=== PATIENT | male | born 1985 | race Caucasian/White ===

== ENCOUNTER 2017-11-28 09:10 | Emergency (ER) | payer OTHER, SELFPAY ==
[2017-11-28 09:11] VITALS: BP 121/74; PULSE 69; RESP 14; TEMP 37; O2SAT 99; BMI 23.7
--- NOTE | 2017-11-28 09:20 | CT_ITS ---
STUDY: CT BRAIN WITHOUT CONTRAST REASON FOR EXAM: Male, 32 years old. Head trauma following a fall. RADIATION DOSAGE (If Supplied By Facility): CTDIvol = ( 44.99 ) mGy, DLP = ( 796.11 ) mGycm TECHNIQUE: Transaxial CT imaging of the brain was performed without administration of intravenous contrast material. Individualized dose optimization techniques were used for this CT. COMPARISON: None. FINDINGS: Normal soft tissue structures. Normal calvarium. Normal size ventricles and extra-axial spaces for the patient's age. Normal white matter tracts of the cerebral hemispheres. Normal basal ganglia and thalami. Normal brainstem. Normal cerebellum. There is no intracranial hemorrhage. There are no findings of an acute ischemic infarction. Opacification of the ethmoid sinuses. Partial opacification of the maxillary sinuses bilaterally worse on the right side. Partial opacification of the frontal sinuses. CT/Brain/Head without Contrast IMPRESSION: Sinusitis. Electronically Signed: Jacinto Madera MD at 10:00 EDT Tel [phone], Service support ,
--- NOTE | 2017-11-28 09:20 | RAD_ITS ---
STUDY: X-RAY - THORACIC SPINE REASON FOR EXAM: Male, 32 years old. History of fall. TECHNIQUE: 3 view(s) of the thoracic spine were obtained. COMPARISON: None. FINDINGS: Normal kyphosis of the thoracic spine. There is no substantial scoliosis. Normal thoracic vertebrae and endplates. Normal disc space heights. The soft tissue structures are unremarkable. RAD/Thoracic Spine 3 Views IMPRESSION: Normal x-ray examination of the thoracic spine. Electronically Signed: Jacinto Madera MD at 10:14 EDT Tel [phone], Service support ,
[2017-11-28] MEDS: Ketorolac 30 MG/ML Syringe 60 MG IM (09:30)
--- NOTE | 2017-11-28 09:50 | RAD_ITS ---
STUDY: X-RAY - CERVICAL SPINE REASON FOR EXAM: Male, 32 years old. Injury due to a fall. TECHNIQUE: 5 view(s) of the cervical spine were obtained. COMPARISON: None FINDINGS: Normal anterior atlantoaxial articulation. Normal odontoid process. Normal cervical lordosis. Normal vertebral bodies and endplates. Normal disc space heights. Normal visualized intervertebral neuroforamina. The soft tissue structures are unremarkable. RAD/Cerv Spine 2 or 3 Views IMPRESSION: Normal x-ray examination of the visualized cervical spine. Electronically Signed: Jacinto Madera MD at 10:14 EDT Tel [phone], Service support ,
--- NOTE | 2017-11-28 10:22 | ED.DCSUM_ITS ---
- ER Visit Summary Date of Service: 11/28/17 Chief Complaint: Head injury History of Present Illness: The patient is a [address] Daigle off. He reports that he was on a 4 foot step ladder when a clamp hit him in the head. 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 Reports that he fell off a stepladder. He is unsure whether he had a loss of consciousness. Complains of a headache that 6 out of 10 severity and neck pain that is 6 out of 10 severity. He denies any other complaints. Physical Examination: Vitals: Stable. Afebrile. Neck: Mild diffuse sinus palpation over his entire cervical spine and upper thoracic spine. No point tenderness. Full ROM without difficulty. Back: Diffuse tenderness palpation over the upper thoracic spine without point tenderness. No pain over the lumbar spine. General: A&O x 3. NAD. Cardiovascular exam: Regular rate and rhythm, no murmur, rub or gallop. Respiratory exam: Chest nontender. No crepitus. Clear to auscultation bilaterally. No wheezes or stridor. Abdominal exam: Soft, nontender, nondistended, normal bowel sounds. No pain in RUQ or LUQ specifically. No peritoneal signs. Extremity: Atraumatic. No pain with range of motion. Test Results: Urine shows no intracranial hemorrhage. He does have sinusitis. X-rays of his C-spine thoracic spine are negative. Emergency Department Course and Treatment: Patient was treated with Toradol IM and is resting comfortably. Treatment Plan: She will be discharged with instructions to use Tylenol and/or ibuprofen for pain. Follow-up manuel mirza in 1 week for another exam. Disposition: To home in improved and stable condition. Impression: 1. Concussion. 2. Cervical strain. This note was generated with [employer] dictation software. It may contain incorrect words, spelling, and punctuation that were not noted in review of the chart prior to signing ED Disposition - Plan for ED Patient: Chief Complaint: Trauma Instructions: ED Concussion Referrals: GISELLA OBANDO [GROUP OF PHYSICIANS] - 1 Week
[2017-11-28 10:28] VITALS: BP 124/79; PULSE 65; RESP 18; O2SAT 99
== END 2017-11-28 10:29 | disposition home or self-care (01) ==
PROVIDERS: Emergency Provider Emergency Medicine; Family Provider Family Medicine; PCP Family Medicine
DX: S06.0X0A Concussion without loss of consciousness, initial encounter (principal); S16.1XXA Strain of muscle, fascia and tendon at neck level, initial encounter; J32.9 Chronic sinusitis, unspecified; F17.220 Nicotine dependence, chewing tobacco, uncomplicated; W18.09XA Striking against other object with subsequent fall, initial encounter; Y93.89 Activity, other specified; Y92.89 Other specified places as the place of occurrence of the external cause; Y99.8 Other external cause status
CPT/HCPCS: 70450; 72040; 72072; 96372; 99283

== ENCOUNTER 2021-07-18 21:12 | Emergency (ER) | payer BC, SELFPAY ==
[2021-07-18 21:19] VITALS: BP 112/72; PULSE 87; RESP 16; TEMP 37.1; O2SAT 94; BMI 26.1
--- NOTE | 2021-07-18 21:40 | CT_ITS ---
EXAMINATION : Head CT w/out contrast HISTORY : syncope, weakness COMPARISON : 11/28/2017. TECHNIQUE : Multiple contiguous axial images were obtained from the skull base to the vertex without intravenous contrast. A radiation dose optimization technique was used for this scan. FINDINGS : The ventricles and sulci are normal in size. There is no evidence for acute intracranial hemorrhage, mass effect, or midline shift. There is no extra-axial fluid collection. There is normal jewell-white differentiation, without CT evidence of acute ischemia or infarct. The skull base and calvarium are unremarkable. The orbits are unremarkable. Mild mucosal thickening of several ethmoid air cells. The mastoid air cells are well-aerated. The soft tissues are unremarkable. CT/Brain/Head without Contrast IMPRESSION: No acute intracranial abnormality. Ethmoid sinusitis. Electronically Signed: Giovany Ramires MD at 23:00 EDT Tel , Service support ,
--- NOTE | 2021-07-18 21:40 | CT_ITS ---
INDICATION: chest pain -- r/o dissection EXAMINATION: CTA Chest WO/W Contrast Injection TECHNIQUE: Helically acquired images were obtained of the chest following administration of IV contrast. A radiation dose optimization technique was used for this scan. 3D postprocessing images including MIPS were reviewed. IV Contrast dosage and agent: IV 100mL [id number] COMPARISON: None. FINDINGS: Lungs: Unremarkable Mediastinum: The cardiomediastinal silhouette is not enlarged. No mediastinal, hilar or axillary adenopathy. The thoracic aorta is unremarkable. No obvious filling defect seen within the visualized pulmonary arteries. Pleura: Bibasilar atelectasis. Bones/Soft tissues: No suspicious osseous or soft tissue lesions Upper abdomen: No visualized abnormalities in the upper abdomen. CT/CTA Chest W/WO Contrast IMPRESSION: No acute abnormalities in the chest. Specifically, no evidence of dissection. Electronically Signed: Giovany Ramires MD at 23:01 EDT Tel , Service support ,
--- NOTE | 2021-07-18 21:41 | EKG12_ITS ---
Test Reason : CP Blood Pressure : / mmHG Vent. Rate : 086 BPM Atrial Rate : 086 BPM P-R Int : 146 ms QRS Dur : 092 ms QT Int : 342 ms P-R-T Axes : 069 057 039 degrees QTc Int : 409 ms Normal sinus rhythm Normal ECG Confirmed by ALEXANDRIA FIGUEROA, RONEY ([id number]), commercial production editor SHERRON HICKMAN ([id number]) on 07/20/2021 9:46:56 AM Referred By: SHANIA Confirmed By:RONEY IBRAHIM MD
[2021-07-18] MEDS: 0.9% Normal Saline 1,000 ML 1000 ML IV (21:50)
[2021-07-18 21:58] LABS: Absolute Lymphocyte Count 0.85 X10^3/uL (0.83-4.51); Absolute Neutrophil Count 13.3 X10^3/uL (2.0-7.7); Basophil# 0.05 X10^3/uL; Basophil% 0.3 % (0-1); Eosinophil# 0.11 X10^3/uL; Eosinophils% 0.7 % (0-5); Hematocrit 42.8 % (40-54); Hemoglobin 15.2 g/dL (13.0-16.5); Lymphocyte # 0.85 X10^3/ul (0.83-4.51); Lymphocyte % 5.6 % (19-41); Mean Corp Hgb Conc 35.5 g/dL (32-36); Mean Corpuscular Hgb 31.7 pg (27.0-32.0); Mean Corpuscular Volume 89.2 fL (80-94); Mean Platelet Vol. 9.6 fl (6.2-12.0); Monocyte# 0.71 X10^3/uL; Monocyte% 4.7 % (0-10); NRBC Flagged by Analyzer 0 % (0-5); Neutrophil # 13.34 X10^3/uL (2.7-7.7); Neutrophil % 88.1 % (47-70); Platelet Count 219 K/mm3 (150-450); RBC Distribution Width CV 11.9 % (11.6-14.6); RBC Distribution Width SD 38.3 fl (35.1-43.9); White Blood Count 15.2 K/mm3 (4.4-11.0)
[2021-07-18 22:14] LABS: AST(SGOT) 18 U/L (15-37); Alanine Aminotransfer ALT/SGPT 29 U/L (16-61); Albumin, Serum 4.3 g/dL (3.2-5.0); Alkaline Phosphatase 53 U/L (45-117); Anion Gap 9 (5-15); BUN 17 mg/dL (7-18); BUN/Creat Ratio 12.9 RATIO (10-20); Bilirubin, Direct 0.13 mg/dL (0.00-0.30); Calcium,Total 9.5 mg/dL (8.5-10.1); Chloride 106 mmol/L (98-107); Creatinine, Serum 1.32 mg/dL (0.70-1.30); EST Glomerular Filtration Rate 65 mL/min (>60); Est Glom Filt Rate - Afr Amer 79 mL/min (>60); Estimated Creatinine Clearance 87.43 ml/min; Globulin 3.3 g/dL (2.2-4.2); Glucose 109 mg/dL (74-106); Potassium 3.5 mmol/L (3.5-5.1); Protein, Total 7.6 g/dL (6.4-8.2); Sodium Level 141 mmol/L (136-145); Troponin-I HS 17 pg/mL (3.0-78.0)
[2021-07-18 22:39] VITALS: BP 118/70; PULSE 80; RESP 19; O2SAT 99
[2021-07-18] MEDS: 0.9% Normal Saline 1,000 ML 250 ML IV (22:46)
[2021-07-18 22:48] LABS: CPK Total, Creatine Kinase 105 U/L (39-308)
--- NOTE | 2021-07-18 23:15 | EX.ED.DYSGE1 ---
HPI History of Present Illness Chief Complaint: Weakness Informant: patient and spouse/S.O. Onset/Context/Timing Onset: Today Current Severity: Moderate Maximum Severity: Moderate Narrative Narrative: Patient presents secondary to chest pain, syncope, upper extremity tingling and pain. Patient and his are in the [place]. He does admit he did not eat or drink much today. He was trying to drag a 200 pound deer out of the [place] up a hill with coyotes following him. Patient states he developed chest pain and felt like his heart was beating out of my chest. He was getting lightheaded and dizzy. He states his arms locked up and he felt like he could not move them and they were tingling. states he had a brief syncopal episode at the edge of the [place]. She got him in the truck and had another brief syncopal episode in the vehicle. She pulled into a local gas station and called EMS. On arrival to the emergency room patient states he is feeling improved but still has significant tenderness on his arms and some mild chest pain. He denies shortness of breath. He does report having a history of seizures with cluster migraines, but states he has not had any of these in years. 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 [facility] Medical History Cluster headache Seizure Medical History no medical history Home Medications NK 11/28/17 [History Last Taken Unknown] Allergy/AdvReac Type Severity Reaction Status Date / Time No Known Allergies Allergy Verified 11/28/17 09:13 Social History Smoking Status: Never smoker ROS ROS ED Constitutional Constitutional ED: Denies chills or fever(s) Eyes Eyes: Denies change in vision ENT ENT ED: Denies sore throat Cardiovascular Cardiovascular: Reports chest pain Respiratory/Chest Respiratory/Chest: Denies cough or dyspnea Gastrointestinal Gastrointestinal: Denies abdominal pain, diarrhea, nausea or vomiting Genitourinary Genitourinary ED: Denies dysuria Musculoskeletal Musculoskeletal: Reports myalgias; Denies back pain Integumentary Denies rash Neurologic Neurologic: Reports paresthesias; Denies headache(s) or weakness Allergic/Immunologic Allergic/Immunologic ED: Denies urticaria EXAM Physical Exam Const Vital Signs: 07/18/21 21:19 07/18/21 22:38 07/18/21 22:39 Temperature 98.7 F Temperature Source Oral Pulse Rate 87 80 Respiratory Rate 16 19 H Respiratory Effort Normal Non-Labored Respiratory Pattern Normal Blood Pressure 112/72 118/70 Blood Pressure Mean 85 86 Pulse Ox 94 99 Oxygen Delivery Method Room Air Room Air 07/18/21 23:22 Temperature Temperature Source Pulse Rate 77 Respiratory Rate 14 Respiratory Effort Respiratory Pattern Blood Pressure 129/68 H Blood Pressure Mean Pulse Ox 98 Oxygen Delivery Method Positive well nourished and well developed General Appearance ED: well developed Eyes PERRL and EOMs intact bilaterally Neck supple Chest Wall inspection of chest normal and palpation of chest normal Resp normal respiratory effort and clear to auscultation bilaterally Cardio regular rate and regular rhythm GI normal to inspection, nondistended, normoactive bowel sounds and non-tender Palpation: soft Extremity Extremity Narrative: Muscular tenderness with palpation over the forearms and upper arms. No significant edema noted. Strong distal pulses that are equal. Strong hand grasp bilaterally. No tenderness noted to the lower extremities. Neuro oriented x3 Sensorium / Orientation: alert Psych mental status grossly normal Skin no rashes or lesions noted MDM MDM MDM Narrative Medical decision making narrative: EKG, head CT, CTA chest obtained. Lab work ordered. Patient given a liter IV fluids. Lab Data Attestation: I reviewed the patient's lab results. Labs: Laboratory Results - last 24 hr 07/18/21 07/18/21 07/18/21 21:30 21:30 21:30 WBC 15.2 H RBC 4.80 Hgb 15.2 Hct 42.8 MCV 89.2 MCH 31.7 MCHC 35.5 RDW Std Deviation 38.3 RDW Coeff of Js 11.9 Plt Count 219 MPV 9.6 Immature Gran % (Auto) 0.600 Neut % (Auto) 88.1 H Lymph % (Auto) 5.6 L Hancock % (Auto) 4.7 Eos % (Auto) 0.7 Baso % (Auto) 0.3 Absolute Neuts (auto) 13.3 H Absolute Lymphs (auto) 0.85 Nucleated RBC % 0 Sodium 141 Potassium 3.5 Chloride 106 Carbon Dioxide 26.0 Anion Gap 9 BUN 17 Creatinine 1.32 H Estim Creat Clear Calc 87.43 Est GFR (MDRD) Af Amer 79 Est GFR (MDRD) Non-Af 65 BUN/Creatinine Ratio 12.9 Glucose 109 H Calcium 9.5 Total Bilirubin 0.40 Direct Bilirubin 0.13 AST 18 ALT 29 Alkaline Phosphatase 53 Total Creatine Kinase 105 Troponin I High Sens 17 Total Protein 7.6 Albumin 4.3 Globulin 3.3 Radiography Diagnostic Testing: Clinical Impression(s) from Imaging Studies Brain CT 07/18/21 21:40 IMPRESSION: No acute intracranial abnormality. Ethmoid sinusitis. Electronically Signed: Giovany Ramires MD at 23:00 EDT Tel , Service support , Chest CTA 07/18/21 21:40 IMPRESSION: No acute abnormalities in the chest. Specifically, no evidence of dissection. Electronically Signed: Giovany Ramires MD at 23:01 EDT Tel , Service support , EKG Initial EKG: Attestation: I personally reviewed and interpreted this EKG as follows: Interpretation: Sinus Rhythm (Sinus 86 with no acute ischemia.) Treatment and Re-Evaluation Comments:: Lab work significant for white count of 15. Creatinine is 1.32. CK level normal. Troponin normal. Head CT unremarkable. CTA of the chest done primarily to rule out dissection and is unremarkable. On repeat evaluation patient reports significant improvement in his symptoms. I initially discussed with him observation in the hospital overnight given his 2 episodes of syncope with exertion. I did recommend obtaining an echocardiogram. Patient states that he has had no problems with this before while playing sports or exerting himself. He does not want stay in the hospital. He will follow closely with his primary care physician and not exert himself. feels comfortable this plan and will keep a close eye on him as well. Return instructions provided. Discharge Plan Triage Chief Complaint: Weakness Other Complaint: Chest Pain Seizure ED Provider: Zainab Seymour Dx/Rx/DC Orders Clinical Impression: Syncope, Chest pain Instructions: ED Chest Pain, Uncertain Cause, ED Fainting, Uncertain Cause Prescriptions: No Action NK RF: 0 Primary Care Provider: Prosper Martin Referrals: Prosper Martin MD [Primary Care Provider] - As soon as possible Disposition Disposition: Home, Self Care Discharge Date/Time: 07/18/21 23:24
[2021-07-18 23:22] VITALS: BP 129/68; PULSE 77; RESP 14; O2SAT 98
== END 2021-07-18 23:24 | disposition home or self-care (01) ==
PROVIDERS: Emergency Provider Emergency Medicine; PCP Family Medicine
DX: R56.9 Unspecified convulsions (principal)
CPT/HCPCS: 70450; 71275; 80048; 80076; 82550; 84484; 85025; 93005; 96360; 96361; 99285; J7030; Q9967